=== PATIENT | female | born 1965 | race Caucasian/White ===

== ENCOUNTER 2019-05-20 10:39 | Outpatient (CLI) | payer OTHER, SELFPAY ==
--- NOTE | ~2019-05-20 | MM_ITS ---
EXAMINATION: MM screening [facility] BI w giana HISTORY: Screening mammogram TECHNIQUE: Craniocaudal and mediolateral oblique 3-D tomosynthesis images were obtained and synthetic 2-D images were generated. CAD analysis was submitted and interpreted. COMPARISON: 02/26/2018, 01/20/2017, 01/10/2016 BREAST PARENCHYMAL COMPOSITION: There are scattered areas of fibroglandular density. FINDINGS: Scattered benign-appearing calcifications are present. There is no evidence of suspicious m ass, calcification, or architectural distortion to suggest malignancy in either breast. There has bee n no suspicious interval change. IMPRESSION: 1. No mammographic evidence of malignancy. 2. Recommend routine screening mammography in one year. BI-RADS Category 2: Benign finding(s). Reviewed, dictated and finalized at location A. E WEIGHER
== END 2019-05-20 10:40 | disposition home or self-care (01) ==
LOC: ANHIMG 10:43
PROVIDERS: PCP Family Medicine; Visit Provider Family Medicine
DX: Z12.31 Encounter for screening mammogram for malignant neoplasm of breast (principal)
CPT/HCPCS: 77063; 77067

== ENCOUNTER 2020-12-29 11:18 | Outpatient (CLI) | payer OTHER, SELFPAY ==
--- NOTE | ~2020-12-29 | MM_ITS ---
EXAMINATION: MM screening [facility] BI w giana HISTORY: Screening mammogram TECHNIQUE: Craniocaudal and mediolateral oblique 3-D tomosynthesis images were obtained and synthetic 2-D images were generated. CAD analysis was submitted and interpreted. COMPARISON: 05/20/2019, 02/26/2018, 01/20/2017 BREAST PARENCHYMAL COMPOSITION: There are scattered areas of fibroglandular density. FINDINGS: Scattered benign-appearing calcifications are present. Also present is stable focal asymmet ry in the upper outer quadrant of the left breast. There is no evidence of suspicious mass, calcifica tion, or architectural distortion to suggest malignancy in either breast. There has been no suspiciou s interval change. IMPRESSION: 1. No mammographic evidence of malignancy. 2. Recommend routine screening mammography in one year. BI-RADS Category 2: Benign finding(s). Reviewed, dictated and finalized at location A.
== END 2020-12-29 11:19 | disposition home or self-care (01) ==
LOC: ANHIMG 11:36
PROVIDERS: PCP Family Medicine; Visit Provider Family Medicine
DX: Z12.31 Encounter for screening mammogram for malignant neoplasm of breast (principal); E11.9 Type 2 diabetes mellitus without complications; E78.2 Mixed hyperlipidemia; I10 Essential (primary) hypertension
CPT/HCPCS: 77063; 77067

== ENCOUNTER 2022-05-01 14:51 | Outpatient (CLI) | payer BC, SELFPAY ==
--- NOTE | ~2022-05-01 | MM_ITS ---
EXAMINATION: MM screening [facility] BI w giana HISTORY: Screening TECHNIQUE: Craniocaudal and mediolateral oblique 3-D tomosynthesis images were obtained and synthetic 2-D images were generated. CAD analysis was submitted and interpreted. COMPARISON: Comparison to multiple prior studies sequentially, with oldest reviewed study dated 08/10. BREAST PARENCHYMAL COMPOSITION: There are scattered areas of fibroglandular density. FINDINGS: There is no evidence of suspicious mass, calcification, or architectural distortion to sugg est malignancy in either breast. There has been no suspicious interval change. IMPRESSION: 1. No mammographic evidence of malignancy. 2. Recommend routine screening mammography in one year. BI-RADS Category 1: Negative Reviewed, dictated and finalized at location A. LVN
== END 2022-05-01 14:52 | disposition home or self-care (01) ==
PROVIDERS: PCP Family Medicine; Visit Provider Family Medicine
DX: Z12.31 Encounter for screening mammogram for malignant neoplasm of breast (principal)
CPT/HCPCS: 77063; 77067

== ENCOUNTER → 2022-05-05 13:32 | Outpatient (CLI) | payer BC, SELFPAY ==
--- NOTE | ~2022-05-05 | CT_ITS ---
EXAMINATION: CT sinus wo con DATE: 05/05/2022 13:49 INDICATION: Recurrent sinusitis. TECHNIQUE: Computed tomography (CT) of the paranasal sinuses was performed without intravenous contra st. Iterative reconstruction technique was employed. The dose-length product was 372.86 mGy-cm. COMPARISON: CT 10/25/2011 FINDINGS: The frontal sinuses are clear. There is mild mucosal thickening in the bilateral ethmoid si nuses. There is a small osteoma in left ethmoid sinus. The sphenoid sinuses are clear. The maxillary sinuses are clear. The ostiomeatal units are widely patent. There are Lobo cells bilaterally. Right middle turbinate is paradoxical. The nasal septum is at the midline. IMPRESSION: 1. Mild mucosal thickening in the paranasal sinuses. Reviewed, dictated and finalized at location A. 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
== END ==
PROVIDERS: PCP Family Medicine; Visit Provider Family Medicine
DX: J32.9 Chronic sinusitis, unspecified (principal); J34.89 Other specified disorders of nose and nasal sinuses
CPT/HCPCS: 70486

== ENCOUNTER 2023-07-17 14:45 | Outpatient (CLI) | payer BC, SELFPAY ==
--- NOTE | ~2023-07-17 | MM_ITS ---
EXAMINATION: MM screening [facility] BI w giana HISTORY: Screening TECHNIQUE: Craniocaudal and mediolateral oblique 3-D tomosynthesis images were obtained and synthetic 2-D images were generated. CAD analysis was submitted and interpreted. COMPARISON: Comparison to multiple prior studies sequentially, with oldest reviewed study dated 05/20. BREAST PARENCHYMAL COMPOSITION: Not dense: There are scattered areas of fibroglandular density. FINDINGS: There is no evidence of suspicious mass, calcification, or architectural distortion to sugg est malignancy in either breast. There has been no suspicious interval change. IMPRESSION: 1. No mammographic evidence of malignancy. 2. Recommend routine screening mammography in one year. BI-RADS Category 1: Negative Reviewed, dictated and finalized at location B.
== END 2023-07-17 14:46 | disposition home or self-care (01) ==
LOC: ANHIMG 14:47
PROVIDERS: PCP Family Medicine; Visit Provider Family Medicine
DX: Z12.31 Encounter for screening mammogram for malignant neoplasm of breast (principal)
CPT/HCPCS: 77063; 77067

== ENCOUNTER 2023-09-16 11:39 | Outpatient (CLI) | payer BC, SELFPAY ==
[2023-09-16 14:04] LABS: Hemoglobin A1C 6.2 % (<5.7)
== END 2023-09-16 11:40 | disposition home or self-care (01) ==
LOC: ANHGOSHLAB 11:42
PROVIDERS: PCP Family Medicine; Visit Provider Student in an Organized Health Care Education/Training Program
DX: E11.9 Type 2 diabetes mellitus without complications (principal)
CPT/HCPCS: 36415; 83036

== ENCOUNTER 2024-04-07 14:27 | Outpatient (CLI) | payer BC, SELFPAY ==
--- NOTE | ~2024-04-07 | US_ITS ---
EXAMINATION: US pelvic complete w TV INDICATION: Postmenopausal bleeding Comparison:No prior studies for comparison. TECHNIQUE: Multiple transabdominal and endovaginal sonographic images of the pelvis performed. FINDINGS: The uterus measures 12 x 6.2 x 4.7 cm. The endometrial complex is indistinct and heterogene ous, likely thickened, although not well delineated for measurement. There are multiple uterine fibro ids, largest measuring 6.7 cm. The ovaries are not visualized. There is no free fluid in the pelvis. There are no abnormal masses seen on either side. IMPRESSION: 1. Enlarged uterus containing multiple fibroids measuring up to 6.7 cm. 2: Likely thickened heterogeneous endometrium which is poorly defined. The differential diagnosis inc ludes endometrial hyperplasia, polyp and carcinoma. Biopsy is recommended. Reviewed, dictated and finalized at location B. 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 Enlarged uterus containing multiple fibroids measuring up to 6.7 cm. 2: Likely thickened heterogeneous endometrium which is poorly defined. The diff erential diagnosis includes endometrial hyperplasia, polyp and carcinoma. Biopsy is recommended.
== END 2024-04-07 14:28 | disposition home or self-care (01) ==
PROVIDERS: PCP Family Medicine; Visit Provider Family Medicine
DX: N85.2 Hypertrophy of uterus (principal); D25.9 Leiomyoma of uterus, unspecified
CPT/HCPCS: 76830; 76856

== ENCOUNTER 2024-05-12 00:16 | Day surgery (SDC) | payer BC, SELFPAY ==
[2024-05-03 12:58] VITALS: BMI 39.6
--- NOTE | 2024-05-03 13:12 | SUR.PREOP ---
Report to the Outpatient Waiting Room, entrance under the green pavilion located off [facility], at time 9:00a.m. on date 05/12/2024. Planned Procedure Time: 11:00a.m..? Time changes happen often and if your time is changed the preop area will call you the afternoon before. - You and your visitor will be asked to self-screen and do not enter if you have any COVID symptoms. Please call surgeon if you need to reschedule. - A mask is optional within the hospital at this time. Patients may have clear liquids (water, carbonated beverages, clear teas, apple juice) until 3 hours prior to surgery with a maximum of 20 ounces. - No food from midnight until time of surgery and no smoking, or chewing Tabacco (or any form of nicotine). No chewing gum, candy or mints. Take only the following medications with a SIP of water on the morning of surgery: inhalers DO NOT STOP ANY OF YOUR OTHER PRESCRIPTION MEDICATIONS PRIOR TO SURGERY EXCEPT THE FOLLOWING Medications to discontinue per physician vitamins and supplements Date to take last dose 05/09/2024 Please no make-up, nail chinese, hairspray, perfume, deodorant, or body powder the day of surgery.? No jewelry (including any body piercings) or valuables the day of surgery, leave them at home.? Please take a shower or bath the night before, or the morning of, surgery with an antibacterial soap.? Wear comfortable, loose fitting clothing.? - Jewelry must be removed prior to entering the operating room.? Rings and piercings that are not removed may be cut off. - The hospital will not accept responsibility for valuables.? - Please leave all valuables, including medications, at home the day of surgery. If you are going home after surgery, a licensed route driver must drive you home.? - NO public transportation without another adult if you receive anesthesia. - We recommend that an adult stay with you for 24 hours following discharge. - We also recommend that you do not drive, make important decision, drink alcoholic beverages, or take any drugs that were not prescribed by your health care provider for at least 24 hours after your discharge time. Hold all vitamins and supplements for 3 days per anesthesiologist. Follow any additional instructions given to you from your surgeon. Telephone instructions given to Philly Vargas and asked if any additional questions and then verbalized understanding. Patient advised to call surgeon office or pre surgery nurse liaison [phone] if any additional questions.
[2024-05-12 09:54] LABS: Glucose Point of Care 148 mg/dl (65-105)
[2024-05-12] MEDS: ACETAMINOPHEN 500 MG TABLET 1000 MG PO (10:06)
[2024-05-12 10:15] VITALS: BP 136/77; PULSE 76; RESP 18; TEMP 36.8; O2SAT 97
--- NOTE | 2024-05-12 10:23 | P.PNAN_ITS ---
Anes - Initial Pre Proc Eval Procedure: Operation Date: 05/12/24 11:00 Proposed Procedures p Hysteroscopy Dilation and Curettage with Polypectomy - Ander Silva MD Date/Time: 05/12/24 10:23 Surgeon: Ander Silva MD Pre Op Diagnosis: post menopausal bleeding, cervical polyp Patient Data Age: 58 Gender: F Height: 1.65 m Weight: 108 kg Allergies Allergy/AdvReac Type Severity Reaction Status Date / Time No Known Allergies Allergy Verified 05/03/24 12:50 Home Medications ?Medication ?Instructions ?Recorded ?Confirmed ?Type albuterol sulfate 90 mcg/actuation 2 puff inhalation Q4H PRN 03/12/23 05/03/24 Rx aerosol inhaler (ProAir HFA) shortness of breath or wheezing #18 grams fluticasone propionate 50 2 spray intranasal BID #47.4 mL 03/12/23 05/03/24 Rx mcg/actuation nasal spray,suspension (Flonase Allergy Relief) Symbicort 160 mcg-4.5 See Rx Instructions .Route 03/15/24 05/03/24 Rx mcg/actuation HFA aerosol inhaler .COMPLEX #33 grams (budesonide-formoterol) montelukast 10 mg tablet 10 mg PO DAILY #90 tabs 03/15/24 05/03/24 Rx (Singulair) simvastatin 40 mg tablet 40 mg PO DAILY #90 tabs 03/15/24 05/03/24 Rx metformin 850 mg tablet 850 mg PO BID #180 tabs 04/05/24 05/03/24 Rx sitagliptin phosphate 100 mg 100 mg PO DAILY #90 tabs 04/11/24 05/03/24 Rx tablet (Januvia) azelastine 137 mcg (0.1 %) nasal 1 - 2 spray intranasal Q12H #30 mL 04/19/24 05/03/24 Rx spray mupirocin 2 % topical ointment 1 applic topical BID #22 grams 04/29/24 05/03/24 Rx aspirin 81 mg capsule 81 mg PO DAILY 05/03/24 05/03/24 History calcium lactate 325 mg tablet 325 mg PO DAILY 05/03/24 05/03/24 History cholecalciferol (vitamin D3) 50 50 mcg PO DAILY 05/03/24 05/03/24 History mcg (2,000 unit) capsule geriatric multivitamin-min 1 tablet PO DAILY 05/03/24 05/03/24 History hydrochlorothiazide 12.5 mg tablet See Rx Instructions .Route 05/09/24 Rx .COMPLEX #90 tabs lisinopril 10 mg tablet See Rx Instructions .Route 05/09/24 Rx .COMPLEX #90 tabs Laboratory Tests 05/12/24 09:51 POC Capillary Glucose 148 H mg/dl (65-105) Patient hx anesthesia problems: none Family hx anesthesia problems: none Results Review: All pre-operative results and documents have been reviewed as part of the pre- operative evaluation. [facility] Past Medical History Medical History Otalgia of left ear TMJ (temporomandibular joint disorder) Dysfunction of both eustachian tubes Nasal folliculitis Nasal congestion Nasal obstruction Hypertrophy of both inferior nasal turbinates Normal colonoscopy 2.11.20 internal hemmies/ fedder/ repeat in 10 years Internal hemorrhoid Family History Family History Mother Diabetes mellitus Family history of cardiovascular disease Family history of lung cancer Family history of malignant neoplasm of kidney Sibling Family history of glaucoma Father Hypertension Family history of Alzheimer's disease Family history of cardiovascular disease Other Family history of hypercholesterolemia Social History Social History Smoking status: Never smoker Alcohol intake: never Substance use: never Substance use type: does not use Do You Feel Safe in your Home?: Yes Lack of Transportation: No Lack of Food: Never True Current Housing: I Have Housing Concerned About Future Housing: No Difficulty Paying Gas/Electric Bills: No Difficulty Paying for Meds: No Currently Unemployed: No Education: Bachelor's Degree Difficulty w/ Childcare or Family Care: No Living arrangements: alone Spiritual care concerns: No Anes - Eval Final PreProcedure Day of Procedure 05/12/24 10:23 Patient weight: morbidly obese Heart: regular rate and rhythm Lungs: clear to auscultation Airway: Mallampati scale class II Neurological: alert and oriented Last oral intake: >/= 8 hours ASA classification: III Emergent: no Anesthetic plan: proceed Anesthesia type and monitoring: general GIVS and standard monitoring Results Review: All pre-operative results and documents have been reviewed as part of the pre- operative evaluation. Informed Consent: The patient's anesthetic plan and its attendant risks and benefits were discussed with the patient/family/POA. Questions were solicited and answers provided to the satisfaction of the patient/family/POA.
--- NOTE | 2024-05-12 11:24 | PM.IMHP ---
H&P: HPI History of Present Illness Date/Time: 05/12/24 11:24 Chief Complaint: Bleeding Narrative: 58 y/o nulligravida with postmenopausal bleeding. Pelvic ultrasound showed fibroids, and the endometrial complex was not well-visualized. Review of Systems Review of Systems: All systems reviewed & are unremarkable except as noted in HPI and below PMFSH Past Medical History Medical History Otalgia of left ear TMJ (temporomandibular joint disorder) Dysfunction of both eustachian tubes Nasal folliculitis Nasal congestion Nasal obstruction Hypertrophy of both inferior nasal turbinates Normal colonoscopy 2.. internal hemmies/ fedder/ repeat in 10 years Internal hemorrhoid Surgical History Surgical History History of foot surgery Family History Family History Mother Diabetes mellitus Family history of cardiovascular disease Family history of lung cancer Family history of malignant neoplasm of kidney Sibling Family history of glaucoma Father Hypertension Family history of Alzheimer's disease Family history of cardiovascular disease Other Family history of hypercholesterolemia Social History Social History Smoking status: Never smoker Alcohol intake: never Substance use: never Substance use type: does not use Do You Feel Safe in your Home?: Yes Lack of Transportation: No Lack of Food: Never True Current Housing: I Have Housing Concerned About Future Housing: No Difficulty Paying Gas/Electric Bills: No Difficulty Paying for Meds: No Currently Unemployed: No Education: Bachelor's Degree Difficulty w/ Childcare or Family Care: No Living arrangements: alone Spiritual care concerns: No Meds Home Medications and Allergies Home Medications ?Medication ?Instructions ?Recorded ?Confirmed ?Type albuterol sulfate 90 mcg/actuation 2 puff inhalation Q4H PRN 03/12/23 05/03/24 Rx aerosol inhaler (ProAir HFA) shortness of breath or wheezing #18 grams fluticasone propionate 50 2 spray intranasal BID #47.4 mL 03/12/23 05/03/24 Rx mcg/actuation nasal spray,suspension (Flonase Allergy Relief) Symbicort 160 mcg-4.5 See Rx Instructions .Route 03/15/24 05/03/24 Rx mcg/actuation HFA aerosol inhaler .COMPLEX #33 grams (budesonide-formoterol) montelukast 10 mg tablet 10 mg PO DAILY #90 tabs 03/15/24 05/03/24 Rx (Singulair) simvastatin 40 mg tablet 40 mg PO DAILY #90 tabs 03/15/24 05/03/24 Rx metformin 850 mg tablet 850 mg PO BID #180 tabs 04/05/24 05/03/24 Rx sitagliptin phosphate 100 mg 100 mg PO DAILY #90 tabs 04/11/24 05/03/24 Rx tablet (Januvia) azelastine 137 mcg (0.1 %) nasal 1 - 2 spray intranasal Q12H #30 mL 04/19/24 05/03/24 Rx spray mupirocin 2 % topical ointment 1 applic topical BID #22 grams 04/29/24 05/03/24 Rx aspirin 81 mg capsule 81 mg PO DAILY 05/03/24 05/03/24 History calcium lactate 325 mg tablet 325 mg PO DAILY 05/03/24 05/03/24 History cholecalciferol (vitamin D3) 50 50 mcg PO DAILY 05/03/24 05/03/24 History mcg (2,000 unit) capsule geriatric multivitamin-min 1 tablet PO DAILY 05/03/24 05/03/24 History hydrochlorothiazide 12.5 mg tablet See Rx Instructions .Route 05/09/24 Rx .COMPLEX #90 tabs lisinopril 10 mg tablet See Rx Instructions .Route 05/09/24 Rx .COMPLEX #90 tabs Allergies Allergy/AdvReac Type Severity Reaction Status Date / Time No Known Allergies Allergy Verified 05/03/24 12:50 Vital Signs Vital Signs - 24 hr 05/12/24 10:15 Temperature 36.8 C Pulse Rate 76 Respiratory Rate 18 Blood Pressure 136/77 Pulse Oximetry 97 Oxygen Delivery Room Air Exam Const: Orientation/consciousness: patient oriented x3 Other: Well-developed, well-nourished female in no acute distress. Neck: Thyroid: thyroid normal Lymphatic: no lymphadenopathy noted (in neck, axilla or inguinal nodes) Resp: Effort & Inspection: normal respiratory effort Auscultation: clear to auscultation bilaterally Cardio: Rate: regular rate Rhythm: regular rhythm Heart sounds: S1 normal heart sound present and S2 normal heart sound present GI: Other: ABD: Soft, nontender, nondistended. No guarding or rebound tenderness. No hepatosplenomegaly. : General: Yes no CVA tenderness Other: External genitalia: normal female hair distribution, without lesion. Urethral meatus: no lesion, non prolapsed. Bladder: no mass, nontender Vagina: poorly-estrogenized, without lesion or discharge. No cystocele or rectocele. Cervix: no lesion or discharge. Uterus: small, anteverted, freely mobile, nontender Adnexa: no mass or tenderness. Anus/perineum: no lesions, nontender Back/Spine/Pelvis: Back: no CVA tenderness Skin: General skin exam: normal color and no rashes or lesions noted Neuro: General: patient oriented x3 Extrem: Other: Extremities: nontender with no edema Psych: Mental Status: mental status grossly normal Affect: normal affect Assessment and Plan Assessment and plan (1) Postmenopausal bleeding: Code(s): N95.0 - Postmenopausal bleeding Status: Acute Assessment and Plan: A: Postmenopausal bleeding. P: I have offered hysteroscopy with dilation and sharp curettage and possible polypectomy. She understands risks of surgery to include risks of anesthesia, risks of pain, infection, bleeding, blood products, thromboembolic phenomena and damage to adjacent structures such as bowel, bladder, ureters, blood vessels and nerves. She understands all these risks and elects to proceed with surgery.
--- NOTE | 2024-05-12 11:29 | WPDHPUPDATE1 ---
History and Physical Update Update Date/Time: 05/12/24 11:29 History and Physical has been reviewed, including an updated exam of the patient. There are NO changes in the patient's condition. Risks, benefits, and alternatives have been discussed and questions answered. Patient agrees to proceed with procedure.
[2024-05-12] MEDS: LIDOCAINE 1% LOCAL INJ 10 ML VIAL INFILTRATE (12:18)
[2024-05-12 12:51] VITALS: BP 142/81; PULSE 80; RESP 20; O2SAT 94
[2024-05-12] MEDS: LACTATED RINGERS 1,000 ML 30 ML IV CONT (12:51)
--- NOTE | 2024-05-12 12:55 | W.PM.PROC2 ---
Procedure Note - Detailed Date of Procedure 05/12/24 Pre-op Diagnosis Postmenopausal bleeding Post-op Diagnosis Same Procedure Performed Hysteroscopy Dilation and sharp curettage Endometrial and endocervical polypectomy Surgeon Ander Silva MD Anesthesia MAC and Local (1% lidocaine) Findings There was a suggestion of a small endocervical polyp. A small endometrial polyp at the fundus adjacent to the left tubal ostium. Both tubal ostia seen. Her body habitus, narrow and long vagina, and sharply anteverted uterus made the procedure difficult, but the procedure went smoothly and there was no suspicion of perforation or other complication. Description of Procedure The patient was taken to the operating room where she was prepared and draped in the usual sterile fashion in the dorsal lithotomy position. The bladder was drained with a red rubber catheter. A sterile speculum was placed into the vagina. The anterior lip of the cervix was grasped with single-tooth tenaculum. Ten mL of 1% lidocaine was administered in a paracervical block. The cervix was then gently dilated using Hegar dilators until a 7 mm dilator could be passed. Hysteroscopy was performed using sterile saline as a distention medium. Findings are as noted above. The Aveta resector tool was used to excise the endometrial and endocervical polyps. Sharp curettage was then performed, and endometrial curettings were collected on a Telfa pad and passed off to be sent to pathology. Hemostasis was excellent. Sponge, lap, needle and instrument counts were correct. The patient was awakened and taken to the recovery room in stable condition. I was present and scrubbed through the entire procedure. Implants None Estimated Blood Loss 30 Drains No Packing No Pathology Yes (Endometrial curettings) Complications None Condition Stable Disposition PACU
[2024-05-12 13:20] VITALS: BP 147/80; PULSE 78; RESP 20
[2024-05-12 13:50] VITALS: BP 154/74; PULSE 78; RESP 20
[2024-05-12 14:15] VITALS: BP 146/81; PULSE 78; RESP 20
== END 2024-05-12 14:20 | disposition home or self-care (01) ==
PROVIDERS: PCP Family Medicine; Visit Provider Obstetrics & Gynecology
PROC: 0U5B8ZZ Destruction of Endometrium, Via Natural or Artificial Opening Endoscopic (ICD-10-PCS; CPT 58563; principal; 2024-05-12 11:00)
DX: N84.1 Polyp of cervix uteri (principal); G89.18 Other acute postprocedural pain; E66.01 Morbid (severe) obesity due to excess calories; Z68.41 Body mass index [BMI] 40.0-44.9, adult; Z79.51 Long term (current) use of inhaled steroids; Z79.84 Long term (current) use of oral hypoglycemic drugs; Z79.82 Long term (current) use of aspirin; Z98.890 Other specified postprocedural states; Z80.1 Family history of malignant neoplasm of trachea, bronchus and lung; Z80.51 Family history of malignant neoplasm of kidney; Z82.49 Family history of ischemic heart disease and other diseases of the circulatory system
CPT/HCPCS: 58558; 82948; 88305; A9270; J2003; J2704; J3010; J7030; J7120

== ENCOUNTER 2024-07-19 14:50 | Outpatient (CLI) | payer BC, SELFPAY ==
--- NOTE | ~2024-07-19 | MM_ITS ---
EXAMINATION: MM screening [facility] BI w giana HISTORY: Screening TECHNIQUE: Craniocaudal and mediolateral oblique 3-D tomosynthesis images were obtained and synthetic 2-D images were generated. CAD analysis was submitted and interpreted. COMPARISON: Comparison to multiple prior studies sequentially, with oldest reviewed study dated 12/29. BREAST PARENCHYMAL COMPOSITION: Not dense: There are scattered areas of fibroglandular density. FINDINGS: There is no evidence of suspicious mass, calcification, or architectural distortion to sugg est malignancy in either breast. There has been no suspicious interval change. IMPRESSION: 1. No mammographic evidence of malignancy. 2. Recommend routine screening mammography in one year. BI-RADS Category 1: Negative Reviewed, dictated and finalized at location A.
== END 2024-07-19 14:51 | disposition home or self-care (01) ==
PROVIDERS: PCP Family Medicine; Visit Provider Family Medicine
DX: Z12.31 Encounter for screening mammogram for malignant neoplasm of breast (principal)
CPT/HCPCS: 77063; 77067